=== PATIENT | female | born 1990 | race Two or more races ===

== ENCOUNTER 2020-12-22 17:47 | Emergency (ER) | payer OTHER ==
[~2020-12-22] VITALS: Ht 162.6 cm; Wt 54.0 kg
[2020-12-22] MEDS ORDERED: MAALOX/HYOSCYAMINE/LIDOCAINE 45 ML BTL PO ONE (18:30)
[2020-12-22 18:41] LABS: BASOPHILS % (AUTO) 1 % (0-1); EOSINOPHILS % (AUTO) 0 % (1-7); LYMPHOCYTES % (AUTO) 23 % (22-44); MD NO; MEAN CORPUSCULAR HGB CONC 32.9 g/dL (32.4-35.8); MEAN PLATELET VOLUME 7.6 fL (7.4-10.4); MONOCYTES % (AUTO) 5 % (2-9); NEUTROPHILS % (AUTO) 72 % (42-75); PLATELET COUNT 322 x10^3/uL (130-400); RED BLOOD COUNT 4.33 x10^6/uL (3.82-5.3); RED CELL DISTRIBUTION WIDTH 14.8 % (9.6-15.2)
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
[2020-12-22 18:50] LABS: ALANINE AMINOTRANSFERASE 19 U/L (12-78); ANION GAP 10 mmol/L (5-15); CALCIUM 8.8 mg/dL (8.5-10.1); CHLORIDE 108 mmol/L (98-107); CREATININE 0.75 mg/dL (0.55-1.02)
[2020-12-22 18:55] LABS: ALKALINE PHOSPHATASE 62 U/L (45-117); BILIRUBIN,TOTAL 0.8 mg/dL (0.2-1.0); TOTAL PROTEIN 7.8 g/dL (6.4-8.2)
[2020-12-22 18:59] LABS: SALICYLATE LEVEL < 1.7 mg/dL (2.8-20.0)
--- NOTE | 2020-12-22 18:59 | NUR ---
Report to Donya ALEXANDRE.
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
--- NOTE | 2020-12-22 19:27 | NUR ---
pt unable to provide urine sample at this time, pt states she will try later.
--- NOTE | 2020-12-22 20:13 | NUR ---
spoke with pt's on phone, ok per pt to give medical information. pt resting in [facility], no other needs at this time. in line of sight of vanita
[2020-12-22] MEDS ORDERED: MAALOX/HYOSCYAMINE/LIDOCAINE 45 ML BTL ONE (20:29)
[2020-12-22 20:34] LABS: MICROSCOPIC NOT IND
[2020-12-22 20:46] LABS: AMPHETAMINE SCREEN, URINE Negative (Negative); BARBITURATE SCREEN, URINE Negative (Negative); BENZODIAZEPINE SCREEN, URINE Negative (Negative); CANNABINOID SCREEN, URINE Negative (Negative); COCAINE SCREEN, URINE Negative (Negative); METHADONE SCREEN, URINE Negative (Negative); OPIATE SCREEN, URINE Negative (Negative)
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
--- NOTE | 2020-12-22 21:44 | NUR ---
pt given water earlier tonight and tolerated well, no n/v at this time. pt dozing intermittently in [facility].
[2020-12-22] MEDS ORDERED: SODIUM CHLORIDE 0.9% 1,000ML IVBOLUS ONE (22:00)
--- NOTE | 2020-12-22 22:17 | NUR ---
TP RN: PT DENIED BY [facility] DUE TO INSURANCE.
--- NOTE | 2020-12-22 22:20 | NUR ---
attempted piv x 3 unsuccessful. another rn at bedside at this time
--- NOTE | 2020-12-22 22:30 | NUR ---
TASK RN: IV ESTABLISHED AND IVF INFUSING PER MAR.
[2020-12-22 22:31] VITALS: BP 106/72
--- NOTE | 2020-12-22 22:33 | NUR ---
pt refusing hospital bed at this time
--- NOTE | 2020-12-22 22:51 | NUR ---
Inna from [facility] accepts. Dr. Hernandez accepting doctor. RTG to [facility] SHANIQUA.
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
--- NOTE | 2020-12-22 23:03 | NUR ---
report given to alf marquez
== END 2020-12-23 00:07 ==
LOC: ED 21:12
DX: T20.02XA Burn of unspecified degree of lip(s), initial encounter (principal); F33.9 Major depressive disorder, recurrent, unspecified; R45.851 Suicidal ideations; R11.10 Vomiting, unspecified; R00.0 Tachycardia, unspecified; T31.0 Burns involving less than 10% of body surface; X08.8XXA Exposure to other specified smoke, fire and flames, initial encounter; Y93.89 Activity, other specified; Y92.89 Other specified places as the place of occurrence of the external cause; Y99.8 Other external cause status
CPT/HCPCS: 36415; 80053; 80143; 80179; 80307; 80320; 81003; 84703; 85025; 96360; 99285; J7030; G0480